=== PATIENT | female | born 1980 | race Two or more races ===

== ENCOUNTER 2025-06-02 18:00 | Emergency (ER) | payer OTHER ==
[~2025-06-02] VITALS: Ht 152.4 cm; Wt 68.2 kg
[2025-06-02 18:07] VITALS: TEMP 98.2
[2025-06-02 21:30] VITALS: BP 137/85; PULSE 79; RESP 18; O2SAT 99
[2025-06-02] MEDS: ACETAMINOPHEN 500 MG TABLET PO ONE (21:39)
[2025-06-02] MEDS: LIDOCAINE 5% TRANSDERMAL PATCH TD ONE (23:18)
[2025-06-02] MEDS: IBUPROFEN 400 MG TABLET PO ONE (23:18)
[2025-06-03] MEDS ORDERED: METH-812 PO (00:50)
[2025-06-03] MEDS ORDERED: LIDO-57 TP (00:50)
== END 2025-06-03 01:02 | disposition home or self-care (01) ==
LOC: EMS 18:00
DX: S00.83XA Contusion of other part of head, initial encounter (principal); S10.93XA Contusion of unspecified part of neck, initial encounter; J45.909 Unspecified asthma, uncomplicated; Y08.89XA Assault by other specified means, initial encounter; Y93.89 Activity, other specified; Y92.89 Other specified places as the place of occurrence of the external cause; Y99.8 Other external cause status
CPT/HCPCS: 70100; 72040; 99284; Z7502; Z7610